=== PATIENT | female | born 1980 | race Caucasian/White ===

== ENCOUNTER → 2017-10-07 | Emergency (ER) | payer OTHER ==
[~2017-10-07] VITALS: Ht 157.5 cm; Wt 50.8 kg
[~2017-10-07] MED LIST: AMOX1TAB12 PO; IBUPROFEN800 MG PO; KETO10TA2 PO; NO TOMA MED.; ORPH100T PO; TUSSI PRES-B L120 M1 PO; [UNRECOGNIZED DRUG - REMARK]
== END | disposition home or self-care (01) ==
LOC: ER 12:30
DX: D25.9 Leiomyoma of uterus, unspecified (principal)

== ENCOUNTER 2019-03-25 14:16 | Emergency (ER) | payer OTHER ==
[~2019-03-25] VITALS: Ht 154.9 cm; Wt 49.9 kg
== END 2019-03-25 20:53 | disposition home or self-care (01) ==
LOC: ER 14:16
DX: D28.2 Benign neoplasm of uterine tubes and ligaments (principal); R10.2 Pelvic and perineal pain

== ENCOUNTER 2019-08-05 08:58 | Outpatient (CLI) | payer OTHER | END 2019-08-05 10:03 | disposition home or self-care (01) | LOC: LAB 08:58 | DX: N20.0 Calculus of kidney (principal) ==

== ENCOUNTER 2024-12-15 15:00 | Emergency (ER) | payer OTHER ==
[~2024-12-15] VITALS: Ht 157.5 cm; Wt 50.8 kg
[2024-12-15] MEDS ORDERED: BENZONATATE 100 MG CAPSULE PO STA (19:05)
[2024-12-15 20:15] LABS: URINE APPEARANCE Clear; URINE BILIRRUBIN Negative (NEGATIVE); URINE BLOOD Negative; URINE COLOR Yellow; URINE GLUCOSE Negative (NEGATIVE); URINE KETONE Negative (NEGATIVE); URINE LEUKOCYTE Negative; URINE NITRATE Negative; URINE PROTEIN Negative (NEGATIVE); URINE UROBILINOGEN 0.2 E.U./dl
[2024-12-15 20:16] LABS: URINE BACTERIA 753.5 uL (0.0-1933); URINE EPITHELIAL CELLS 31.0 uL (0.0-38.8); URINE RBC 6.5 uL (0.0-20.8); URINE WBC 25.5 uL (0.0-23.2)
[2024-12-15 20:20] LABS: URINE CAST 0.58 uL (0.0-1.40)
[2024-12-15] MEDS ORDERED: MINERAL OIL 30 ML BLIST.PACK PO STA (20:56)
[2024-12-15] MEDS ORDERED: LACTULOSE 20 G/30 ML BLIST.PACK PO STA (20:56)
[2024-12-15] MEDS ORDERED: MAGNESIUM HYDROXIDE 400 MG/5 ML ML PO STA (20:57)
[2024-12-15] MEDS ORDERED: MIRALAX17 GM PO (21:08)
== END 2024-12-15 21:29 | disposition home or self-care (01) ==
LOC: ER 15:00
PROVIDERS: General Practice
DX: K59.00 Constipation, unspecified (principal); M54.50 Low back pain, unspecified